=== PATIENT | female | born 1985 | race Caucasian/White ===

== ENCOUNTER → 2017-03-12 | Outpatient (CLI) | payer OTHER ==
[~2017-03-12] MED LIST: CITA10TA8 PO; FERR325T51 PO; PRENTAB26 PO
[2017-03-12 14:50] LABS: URINE APPEARANCE CLEAR (CLEAR); URINE BILIRUBIN NEG (NEG); URINE COLOR YELLOW; URINE NITRITE NEG (NEG); URINE PH 6.5 (4.5-7.5); URINE SPECIFIC GRAVITY 1.019 (1.000-1.030); UROBILINOGEN NEG (NEG)
[2017-03-12 15:15] LABS: MANUAL MICROSCOPIC REQUIRED? NO; REVIEW REQ? NO
== END | disposition home or self-care (01) ==
LOC: C.LABSPEC 14:15
PROVIDERS: ATTEND Obstetrics & Gynecology
DX: Z34.81 Encounter for supervision of other normal pregnancy, first trimester (principal); Z3A.00 Weeks of gestation of pregnancy not specified

== ENCOUNTER → 2017-03-17 | Outpatient (CLI) | payer OTHER ==
[2017-03-17 12:22] LABS: BASO % 0.1 %; BASO ABS # 0.01 K/uL (0-0.2); COMPLETE YES; EOS % 0.8 %; HEMATOCRIT 36.9 % (37-47); IG% 0.1 %; LYMPH % 23.3 %; LYMPH ABS # 1.74 K/uL (1.2-3.4); MEAN CELL VOLUME 86.8 fL (80-100); MEAN CORPUSCULAR HEMOGLOBIN 29.6 pg (25-34); MEAN CORPUSCULAR HGB CONC 34.1 g/dl (32-36); MONO % 6.2 %; NEUT % 69.5 %; PLATELET COUNT 180 K/uL (130-400); RED BLOOD COUNT 4.25 M/uL (4.2-5.4); WHITE BLOOD COUNT 7.47 K/uL (4.8-10.8)
[2017-03-19 15:16] LABS: CHLAMYDIA TRACH RNA*** NOT DETECTED (NOT DETECTED); GC (NEIS GONORRHOEAE)RNA** NOT DETECTED (NOT DETECTED)
== END | disposition home or self-care (01) ==
LOC: C.LAB1850 10:04
PROVIDERS: ATTEND Obstetrics & Gynecology
DX: Z34.81 Encounter for supervision of other normal pregnancy, first trimester (principal)

== ENCOUNTER → 2017-04-13 | Outpatient (CLI) | payer OTHER | END | disposition home or self-care (01) | LOC: C.LAB1850 16:07 | PROVIDERS: ATTEND Obstetrics & Gynecology | DX: O20.9 Hemorrhage in early pregnancy, unspecified (principal) ==

== ENCOUNTER → 2017-05-05 | Outpatient (CLI) | payer OTHER ==
[2017-05-05 13:04] LABS: GTGD 50 Grams
== END | disposition home or self-care (01) ==
LOC: C.LAB1850 09:44
PROVIDERS: ATTEND Obstetrics & Gynecology
DX: Z34.82 Encounter for supervision of other normal pregnancy, second trimester (principal); Z3A.00 Weeks of gestation of pregnancy not specified

== ENCOUNTER → 2017-07-30 | Outpatient (CLI) | payer OTHER ==
[~2017-07-30] MED LIST changes: -CITA10TA8 PO
[2017-07-30 12:15] LABS: HEMATOCRIT 34.4 % (37-47); HEMOGLOBIN 11.2 g/dL (12.0-16.0)
== END | disposition home or self-care (01) ==
LOC: C.LAB1850 09:23
PROVIDERS: ATTEND Obstetrics & Gynecology
DX: Z34.83 Encounter for supervision of other normal pregnancy, third trimester (principal)

== ENCOUNTER 2017-08-27 10:18 | Outpatient (CLI) | payer OTHER ==
[2017-08-27] MEDS ORDERED: BETAMETH SOD PHOS/ACETATE IA 6 MG/ML IM SCH (11:00)
--- NOTE | 2017-09-03 09:09 | EDITING REQUIRED CODING QUERY ---
DIAGNOSIS NEEDED To promote full compliance with coding requirements relating to patient care, physician participation is requested in all cases of building construction estimator uncertainty. Please assist us with the question(s) below: Coding Question: The patient received care in labor and delivery on 08/27/17 as noted within the record. Please document the diagnosis that is being addressed by the medication/treatment. Provider Response: DIAGNOSIS: contractions, BMTZ injection WEEKS OF GESTATION: Thank you for your assistance, Zena Little- Full Time Staff Interpreter
== END 2017-08-27 11:05 | disposition home or self-care (01) ==
LOC: C.OPB 10:18 → C.LD 10:19 → C.OPB 11:05
PROVIDERS: ATTEND Obstetrics & Gynecology
DX: O62.9 Abnormality of forces of labor, unspecified (principal); Z3A.00 Weeks of gestation of pregnancy not specified

== ENCOUNTER 2017-08-28 11:04 | Outpatient (CLI) | payer OTHER ==
[2017-08-28] MEDS ORDERED: BETAMETH SOD PHOS/ACETATE IA 6 MG/ML IM SCH (11:30)
--- NOTE | 2017-09-03 09:14 | EDITING REQUIRED CODING QUERY ---
DIAGNOSIS NEEDED To promote full compliance with coding requirements relating to patient care, physician participation is requested in all cases of bureau chief uncertainty. Please assist us with the question(s) below: Coding Question: The patient received care in labor and delivery on 08/28/17 as noted within the record. Please document the diagnosis that is being addressed by the medication/treatment. Provider Response: DIAGNOSIS: Separation of amnion/chorion: O41.8X90 WEEKS OF GESTATION: 33 weeks Thank you for assistance, Zena Little - Invoice Control Clerk
== END 2017-08-28 11:35 | disposition home or self-care (01) ==
LOC: C.LD 11:04 → C.OPB 11:04
PROVIDERS: ATTEND Obstetrics & Gynecology
DX: O41.8X30 Other specified disorders of amniotic fluid and membranes, third trimester, not applicable or unspecified (principal); Z3A.33 33 weeks gestation of pregnancy

== ENCOUNTER 2017-09-06 07:27 | Outpatient (CLI) | payer OTHER ==
[~2017-09-06] VITALS: Ht 167.6 cm; Wt 81.0 kg
[2017-09-06 08:17] VITALS: Ht 167.6 cm; Wt 81.0 kg
[2017-09-06] MEDS ORDERED: LACTATED RINGER'S 1000ML 500 ML IV ONE (09:00)
[2017-09-06] MEDS ORDERED: LACTATED RINGER'S 1000ML 1,000 ML IV SCH (09:00)
--- NOTE | 2017-09-06 09:49 | HISTORY & PHYSICAL EXAMINATION ---
DATE OF ADMISSION: 09/06/2017 ADMITTING DIAGNOSES: 1. Complicated at 34 weeks gestational age. 2. Separation of chorion and amnion membranes. 3. premature rupture of the membranes. ADMISSION HISTORY: The patient is a 31-year-old 3, para 1 with an EDC of 18 October by dates and first trimester ultrasound at 34 and 0/7 weeks gestational age who presented to labor and delivery with premature rupture of membranes. The patient states that she awoke this morning and was wet and continued to leak fluid. The patient's course has been remarkable initially for late second trimester and early third trimester vaginal bleeding. Etiology of this was unclear. At a 32-week growth ultrasound, the patient was noted to have complete separation of the chorion and amnion. The case had been discussed with Dr. Sharp, maternal medicine specialist at [facility] and he recommended prophylactic steroids, which were given on the and 28 of August. The patient has been followed with twice weekly NSTs and monthly growth scans. The patient presented to labor and delivery, then for evaluation. PAST MEDICAL HISTORY: OB: x1. 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 SURGICAL: Tonsillectomy and wisdom teeth extraction. ALLERGIES: No known drug allergies. SOCIAL HISTORY: No smoking. FAMILY HISTORY: Noncontributory. REVIEW OF SYSTEMS: As per HPI. ADMISSION PHYSICAL EXAMINATION: GENERAL: Shows a pleasant gravid female in no acute distress. VITAL SIGNS: Blood pressure 100/70 and weight 178 pounds. HEENT EXAMINATION: Unremarkable. NECK: Supple. LUNGS: Clear. HEART: With a regular rhythm and rate. ABDOMEN: Gravid, vertex, positive heart tones, estimated weight of 4-1/2 pounds. PELVIC: Shows normal external genitalia. Vaginal vault is pink and rugated. The cervical os is multiparous and closed. Sterile speculum examination shows fluid in the posterior fornix. AmniSure and wet prep specimen is obtained. Digital examination shows the cervix to be closed. EXTREMITIES: Shows no deep calf tenderness. NEUROLOGIC: Grossly intact. LABORATORY VALUES: Show positive AmniSure, fern test positive. IMPRESSION: A 31-year-old 3, para 1 at 34 and 0/7 weeks gestational age. Separation of the chorion and the amnion with premature rupture of membranes. The patient was discussed with Dr. Abdi in [place], who has agreed to accept the patient in transport. The patient is not actively aleksandra and as such I believe she can safely be traveled by ambulance. The risks, benefits and alternatives to the transport have been discussed and the patient has consented and permit has been signed.
== END 2017-09-06 10:05 | disposition short-term general hospital (02) ==
LOC: C.LD 07:27 → C.OPB 07:27
PROVIDERS: ATTEND Obstetrics & Gynecology
DX: O41.8X30 Other specified disorders of amniotic fluid and membranes, third trimester, not applicable or unspecified (principal); Z3A.00 Weeks of gestation of pregnancy not specified